=== PATIENT | male | born 1990 | race Caucasian/White ===

== ENCOUNTER 2023-01-27 11:50 | Emergency (ER) | payer MEDICAID, OTHER ==
[~2023-01-27] VITALS: Ht 175.3 cm; Wt 82.0 kg
[2023-01-27 12:05] VITALS: BP 151/93
[2023-01-27] MEDS ORDERED: TOPUD MT (15:29)
[2023-01-27] MEDS ORDERED: IBUP-2029 MT (15:29)
== END 2023-01-27 15:57 | disposition home or self-care (01) ==
LOC: ER 11:50
DX: S13.4XXA Sprain of ligaments of cervical spine, initial encounter (principal); S20.219A Contusion of unspecified front wall of thorax, initial encounter; V49.49XA Driver injured in collision with other motor vehicles in traffic accident, initial encounter; Y93.89 Activity, other specified; Y92.89 Other specified places as the place of occurrence of the external cause; Y99.8 Other external cause status
CPT/HCPCS: 71045; 72040; 93005; 99284

== ENCOUNTER 2023-08-31 16:42 | Emergency (ER) | payer SELFPAY ==
[~2023-08-31] VITALS: Ht 177.8 cm; Wt 90.0 kg
[~2023-08-31 16:42] MED LIST: IBUP-2029 MT; TOPUD MT
[2023-08-31 17:04] VITALS: TEMP 98.7; O2SAT 97
[2023-08-31 17:30] VITALS: BP 167/106; PULSE 115; RESP 20
[2023-08-31] MEDS ORDERED: IBUPROFEN 400MG TABLET PO ONE (17:30)
[2023-08-31] MEDS ORDERED: FLUORESCEIN SODIUM 1MG/STRIP LEFTEYE ONE (17:30)
[2023-08-31] MEDS ORDERED: TETRACAINE 0.5% OPHTH DROPS 4ML LEFTEYE ONE (17:30)
[2023-08-31] MEDS ORDERED: HOMA5DRO8 LEFTEYE (19:41)
[2023-08-31] MEDS ORDERED: IBUP-2028 MT (19:41)
== END 2023-08-31 19:50 | disposition home or self-care (01) ==
LOC: ER 16:42
DX: S05.8X2A Other injuries of left eye and orbit, initial encounter (principal); X58.XXXA Exposure to other specified factors, initial encounter; Y93.89 Activity, other specified; Y92.89 Other specified places as the place of occurrence of the external cause; Y99.8 Other external cause status
CPT/HCPCS: 70480; 99284

== ENCOUNTER 2023-09-02 01:18 | Emergency (ER) | payer SELFPAY ==
[~2023-09-02] VITALS: Ht 174 cm; Wt 87.4 kg
[~2023-09-02 01:18] MED LIST changes: +HOMA5DRO8 LEFTEYE; +IBUP-2028 MT
[2023-09-02 01:30] VITALS: BP 143/95; O2SAT 96
[2023-09-02] MEDS ORDERED: ATRO2DRO6 LEFTEYE (01:48)
[2023-09-02 02:29] VITALS: PULSE 96; RESP 18; TEMP 98.2
== END 2023-09-02 02:40 | disposition home or self-care (01) ==
LOC: ER 01:18
DX: H57.12 Ocular pain, left eye (principal)
CPT/HCPCS: 99283